=== PATIENT | female | born 1950 | race Caucasian/White ===

== ENCOUNTER → 2017-01-21 | Outpatient (CLI) | payer BC ==
[~2017-01-21] MED LIST: CELE100C PO; MECL1TAB42 PO; SPIR1TAB72 PO
--- NOTE | 2017-01-21 12:40 | DIAGNOSTIC IMAGING REPORT ---
RIGHT HIP 2 VIEWS CLINICAL HISTORY: Right hip pain. FINDINGS: AP and frog-leg views of the right hip are obtained. No prior studies are available for comparison at the time of dictation. The skeletal structures are osteopenic. A bipolar right hip arthroplasty is in near-anatomic alignment. No fracture is seen. No periprosthetic lucency is identified. Enthesophytes arise from the greater trochanter of the right femur and the right anterior superior iliac spine. Enthesophytes are also seen at the hamstrings origin. Sclerotic degenerative change is noted in the right sacroiliac joint and pubic symphysis. Lumbosacral spondylosis is partially imaged. Pelvic phleboliths are observed. The overlying soft tissues are within normal orbits. IMPRESSION: 1. No acute bony abnormality is seen in the right hip. 2. Osteopenia, arthritic change, and right hip arthroplasty as above. Electronically signed by: Guzman Lujan M.D. 01/21/2017 12:39 PM Dictated Date/Time: 01/21/2017 12:38 PM
== END | disposition home or self-care (01) ==
LOC: C.RAD 11:19
PROVIDERS: ATTEND Nurse Practitioner
DX: M25.551 Pain in right hip (principal); Z96.641 Presence of right artificial hip joint; M85.851 Other specified disorders of bone density and structure, right thigh

== ENCOUNTER → 2017-04-11 | Outpatient (CLI) | payer BC ==
--- NOTE | 2017-04-11 15:18 | DIAGNOSTIC IMAGING REPORT ---
LEG LENGTH STUDY (WHOLE LEG) CLINICAL HISTORY: RT HIP PAIN, UNEQUAL LIMB LENGTH. COMPARISON STUDY: Right hip radiographs January 21, 2017. FINDINGS: Note is made of a right hip arthroplasty and bilateral total knee arthroplasties. There is severe osteoarthritis of the left hip with complete loss of the superior joint space with osteophytosis and sclerosis. No fracture or suspicious osseous lesion is identified. The right leg measures 76.7 cm when measuring from the upper aspect of the acetabular cup through the tibial plafond. The left leg measures 75 cm when measuring from the femoral head to the tibial plafond. IMPRESSION: 1. Right leg length of 76.7 cm and left leg length of 75 cm. 2. 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 3. Severe osteoarthritis of the left hip. Electronically signed by: Himanshu Giraldo M.D. 04/11/2017 3:16 PM Dictated Date/Time: 04/11/2017 3:14 PM
== END | disposition home or self-care (01) ==
LOC: C.RAD 13:51
PROVIDERS: ATTEND Family Medicine
DX: M25.551 Pain in right hip (principal); M21.70 Unequal limb length (acquired), unspecified site; Z96.641 Presence of right artificial hip joint; Z96.653 Presence of artificial knee joint, bilateral; M16.12 Unilateral primary osteoarthritis, left hip